=== PATIENT | female | born 1995 ===

== ENCOUNTER 2020-10-16 01:15 | Inpatient (IN) | payer OTHER ==
[~2020-10-16] VITALS: Ht 160 cm; Wt 68.6 kg
[2020-10-16] VITALS (34 sets, daily range): BP systolic 19–133; BP diastolic 54–84; PULSE 77–132; TEMP 97.6–99.7
--- NOTE | 2020-10-16 01:25 | NUR ---
Pt arrived on unit ambulatory, escorted by and with complaints of contractions every "couple" minutes. Pt denies any leaking of fluid but reports increased discharge and reports normal movement. EFM and toco monitors started. Vital signs WNL. SVE by this RN /. Labor assessment plan of care reviewed.
[2020-10-16] MEDS ORDERED: PRENATAL (01:46)
--- NOTE | 2020-10-16 02:30 | NUR ---
KATINAE by this RN . Information reviewed with Dr. Hooper. FHR tracing reviewed. Orders for labor admission received. Plan of care reviewed with pt and at the bedside.
[2020-10-16 03:30] LABS: BASO % 0.3 % (0.0-2.0); EOS % 0.2 % (0-4.0); GRAN # 8.1 (1.4-6.5); GRAN % 79.1 % (42.2-75.2); HEMATOCRIT 39.9 % (37.0-47.0); HEMOGLOBIN 14.2 g/dl (12.5-16.0); LYMPH # 1.6 (1.2-3.4); LYMPH % 15.5 % (20.0-51.0); MEAN CELL VOLUME 92 fl (80.0-100.0); MEAN CORPUSCULAR HEMOGLOBIN 33 pg (27.0-31.0); MEAN CORPUSCULAR HGB CONC 36 g/dl (33.0-37.0); MEAN PLATELET VOLUME 10.2 fl (7.4-10.4); MONO # 0.4 (0.1-0.6); MONO % 4.2 % (1.7-9.3); PLATELET COUNT 192 K/mm3 (130-400); RED BLOOD COUNT 4.32 M/mm3 (4.10-5.30); REDCELL DISTRIBUTION WIDTH-CV 12.9 % (11.5-14.5)
--- NOTE | 2020-10-16 03:50 | NUR ---
Pt off EFM to ambulate and use birthing ball.
--- NOTE | 2020-10-16 04:20 | NUR ---
Pt in the shower. in bathroom with her for assistance.
--- NOTE | 2020-10-16 07:36 | NUR ---
PATIENT OFF EFM TO WALK IN HALLS
--- NOTE | 2020-10-16 08:59 | NUR ---
ON EFM AT 0837
--- NOTE | 2020-10-16 14:04 | NUR ---
BY DR TSAI AT THIS TIME. TO MOTHERS CHEST IN CARE OF JAE TAMEZ. STRAIGHT CATH PREFORMED BY DR TSAI. PLACENTA SPON DELIVERED AT 1407. OXYTOCIN AT 333 MLS/HR. FUNDAL MASSAGE PROVIDED 2ND DEGREE REPAIRED BY DR TSAI. ICE PACK TO PERINEUM. RECOVERY STARTED AT 1415
[2020-10-17 01:00] VITALS: BP 124/70; PULSE 101; TEMP 98.3
--- NOTE | 2020-10-17 09:13 | NUR ---
Initial visit; Parents thanked Nurse Sane for offering congratulations and God's blessings for the of their son. Nurse Sane thanked them for choosing [facility].
[2020-10-17] MEDS ORDERED: IBU600 MG PO (09:21)
[2020-10-17 09:36] VITALS: BP 109/69; PULSE 102; TEMP 98.3
[2020-10-17 17:29] VITALS: BP 124/68; PULSE 76; TEMP 98.4
== END 2020-10-17 17:30 | disposition home or self-care (01) | DRG 807 ==
LOC: LDRO 01:15 → LDR 01:49 → LDRO 02:38 → OB 02:38
PROVIDERS: ADMIT Obstetrics & Gynecology
PROC: 10E0XZZ Delivery of Products of Conception, External Approach (ICD-10-PCS; principal; 2020-10-16)
PROC: 0KQM0ZZ Repair Perineum Muscle, Open Approach (ICD-10-PCS; 2020-10-16)
PROC: 10907ZC Drainage of Amniotic Fluid, Therapeutic from Products of Conception, Via Natural or Artificial Opening (ICD-10-PCS; 2020-10-16)
PROC: 3E033VJ Introduction of Other Hormone into Peripheral Vein, Percutaneous Approach (ICD-10-PCS; 2020-10-16)
DX: O99.824 Streptococcus B carrier state complicating childbirth (principal); Z37.0 Single live birth; O99.62 Diseases of the digestive system complicating childbirth; K21.9 Gastro-esophageal reflux disease without esophagitis; O70.1 Second degree perineal laceration during delivery; Z3A.38 38 weeks gestation of pregnancy
CPT/HCPCS: J1200; J2540; J2590; J7120